=== PATIENT | female | born 1950 | race Caucasian/White ===

== ENCOUNTER 2022-01-12 01:06 | Day surgery (SDC) | payer MEDICARE, SELFPAY ==
[2021-12-30 13:25] VITALS: BMI 39.1
[2022-01-12 13:40] VITALS: BP 172/84; PULSE 95; RESP 18; TEMP 36.3; O2SAT 98
[2022-01-12] MEDS: LACTATED RINGERS 1,000 ML 150 ML IV CONT (13:43)
--- NOTE | 2022-01-12 14:12 | P.PNAN_ITS ---
Anes - Initial Pre Proc Eval Procedure: Operation Date: 01/12/22 14:30 Proposed Procedures p Screening Colonoscopy - Jeff Fields MD Date/Time: 01/12/22 14:12 Surgeon: Jeff Fields MD Pre Op Diagnosis: hx of colon polyps Patient Data Age: 71 Gender: F Height: 1.52 m Weight: 93.8 kg Last Vital Signs Temp 97.3 F L 01/12/22 13:40 Pulse 95 01/12/22 13:40 Resp 18 01/12/22 13:40 BP 172/84 H 01/12/22 13:40 Pulse Ox 98 01/12/22 13:40 O2 Del Method Room Air 01/12/22 13:40 Allergies Allergy/AdvReac Type Severity Reaction Status Date / Time No Known Allergies Allergy Verified 01/12/22 13:39 Home Medications Medication Instructions Recorded Confirmed Type acetaminophen 500 mg tablet 500 mg PO QID PRN Pain 12/30/21 01/12/22 History (Tylenol Extra Strength) atorvastatin 10 mg tablet 10 mg PO DAILY 12/30/21 01/12/22 History celecoxib 200 mg capsule 200 mg PO DAILY PRN Pain 12/30/21 01/12/22 History escitalopram oxalate 10 mg tablet 10 mg PO HS 12/30/21 01/12/22 History folic acid 1 mg tablet 1 mg PO DAILY 12/30/21 01/12/22 History levothyroxine 100 mcg tablet 100 mcg PO DAILY 12/30/21 01/12/22 History methotrexate sodium 2.5 mg tablet 12.5 mg PO WEEKLY 12/30/21 01/12/22 History fxxivrwjkjkw-iacqhhnx-idgmfn tablet 1 tablet PO DAILY 12/30/21 01/12/22 History omeprazole 20 mg tablet,delayed 20 mg PO DAILY 12/30/21 01/12/22 History release tramadol 50 mg tablet 50 mg PO Q6H PRN Pain 12/30/21 01/12/22 History valsartan 160 1 tablet PO DAILY 12/30/21 01/12/22 History mg-hydrochlorothiazide 25 mg tablet Patient hx anesthesia problems: none Family hx anesthesia problems: none Results Review: All pre-operative results and documents have been reviewed as part of the pre- operative evaluation. [facility] Past Medical History Medical History Osteoarthritis of both knees Family History Family History Mother Cerebrovascular accident Social History Social History Smoking status: Never smoker Alcohol intake: never Living arrangements: with family Spiritual care concerns: No Anes - Eval Final PreProcedure Day of Procedure 01/12/22 14:12 Patient weight: morbidly obese Heart: regular rate and rhythm Lungs: clear to auscultation Airway: Mallampati scale class II Neurological: alert and oriented Last oral intake: >/= 8 hours ASA classification: III Emergent: no Anesthetic plan: proceed Anesthesia type and monitoring: general GIVS and standard monitoring Results Review: All pre-operative results and documents have been reviewed as part of the pre- operative evaluation. Informed Consent: The patient's anesthetic plan and its attendant risks and benefits were discussed with the patient/family/POA. Questions were solicited and answers provided to the satisfaction of the patient/family/POA.
--- NOTE | 2022-01-12 14:48 | PM.HPGS ---
History of Present Illness History of Present Illness Consent: Risks, benefits, and alternatives have been discussed and questions answered. Patient agrees to proceed with procedure. Chief complaint: hx of colon polyps Narrative: Aurora Little is a 71 year old female Referred for colon cancer screening. She has a history of polyps. Review of Systems Review of Systems: All systems reviewed & are unremarkable except as noted in HPI and below PMFSH Past Medical History Medical History (Updated 01/12/22 @ 14:58 by Jeff Fields MD) Osteoarthritis of both knees Family History Family History Mother Cerebrovascular accident Social History Social History Smoking status: Never smoker Alcohol intake: never Living arrangements: with family Spiritual care concerns: No Meds Home Medications and Allergies Home Medications Medication Instructions Recorded Confirmed Type acetaminophen 500 mg tablet 500 mg PO QID PRN Pain 12/30/21 01/12/22 History (Tylenol Extra Strength) atorvastatin 10 mg tablet 10 mg PO DAILY 12/30/21 01/12/22 History celecoxib 200 mg capsule 200 mg PO DAILY PRN Pain 12/30/21 01/12/22 History escitalopram oxalate 10 mg tablet 10 mg PO HS 12/30/21 01/12/22 History folic acid 1 mg tablet 1 mg PO DAILY 12/30/21 01/12/22 History levothyroxine 100 mcg tablet 100 mcg PO DAILY 12/30/21 01/12/22 History methotrexate sodium 2.5 mg tablet 12.5 mg PO WEEKLY 12/30/21 01/12/22 History vzcscigezsao-emhtmzom-kvflas tablet 1 tablet PO DAILY 12/30/21 01/12/22 History omeprazole 20 mg tablet,delayed 20 mg PO DAILY 12/30/21 01/12/22 History release tramadol 50 mg tablet 50 mg PO Q6H PRN Pain 12/30/21 01/12/22 History valsartan 160 1 tablet PO DAILY 12/30/21 01/12/22 History mg-hydrochlorothiazide 25 mg tablet Allergies Allergy/AdvReac Type Severity Reaction Status Date / Time No Known Allergies Allergy Verified 01/12/22 13:39 Vital Signs Vital Signs - 24 hr 01/12/22 13:40 Temperature 36.3 C L Pulse Rate 95 Respiratory Rate 18 Blood Pressure 172/84 H Pulse Oximetry 98 Oxygen Delivery Room Air Exam Resp: Auscultation: clear to auscultation bilaterally Cardio: Rate: regular rate Rhythm: regular rhythm GI: GI Palp: Yes Soft to palpation and No Tenderness to palpation present (GI) Assessment and Plan Assessment and plan (1) Colon cancer screening: Code(s): Z12.11 - Encounter for screening for malignant neoplasm of colon Status: Acute Assessment and Plan: Colonoscopy with possible biopsy or polypectomy or cautery or injection of substances.
[2022-01-12] MEDS: SIMETHICONE ORAL SUSPENSION 20 MG/0.3 ML 30 ML BOTTLE 0.6 ML IRRIGATION (15:03)
[2022-01-12 15:14] VITALS: BP 100/61; PULSE 63; RESP 14; O2SAT 99
[2022-01-12 15:24] VITALS: BP 105/58; PULSE 60; RESP 16; O2SAT 100
[2022-01-12 15:34] VITALS: BP 116/61; PULSE 60; RESP 18; O2SAT 99
== END 2022-01-12 15:40 | disposition home or self-care (01) ==
PROVIDERS: PCP Internal Medicine; Visit Provider Internal Medicine Gastroenterology
PROC: 0DJD8ZZ Inspection of Lower Intestinal Tract, Via Natural or Artificial Opening Endoscopic (ICD-10-PCS; CPT 45378; principal; 2022-01-12 14:30)
DX: Z12.11 Encounter for screening for malignant neoplasm of colon (principal); K64.8 Other hemorrhoids; D12.5 Benign neoplasm of sigmoid colon; E66.01 Morbid (severe) obesity due to excess calories; Z68.41 Body mass index [BMI] 40.0-44.9, adult
CPT/HCPCS: 45380; 88305; J2704; J7120